=== PATIENT | female | born 1955 | race Caucasian/White ===

== ENCOUNTER 2018-05-24 06:58 | Day surgery (SDC) | payer OTHER ==
[2018-05-24] MEDS ORDERED: Lactated Ringers 1,000 ML IV SCH (07:30)
[2018-05-24] MEDS ORDERED: fentaNYL 100 MCG/2 ML SDV ONE (08:22)
[2018-05-24] MEDS ORDERED: Propofol 200 MG/20 ML SDV ONE (08:22)
[2018-05-24] MEDS ORDERED: Midazolam 1 MG/ML 2 ML SDV ONE (08:22)
--- NOTE | 2018-05-24 11:01 | OR ---
DATE OF PROCEDURE: 05/24/2018 PREOP DIAGNOSIS: Colon cancer screening. POSTOP DIAGNOSIS: Small transverse colon polyp. PROCEDURE PERFORMED: Colonoscopy to the cecum with biopsy resection of small transverse colon polyp. SURGEON: Efrem Valdez MD ANESTHESIA: IV anesthesia with monitored anesthesia care. INDICATION: This 62-year-old white female is referred for a colonoscopy for colon cancer screening. Her last colonoscopic exam was done 10 years ago. I counseled her for the procedure, including risks and alternatives, and she gave her informed consent to proceed. DESCRIPTION OF PROCEDURE: The patient was placed in the left lateral decubitus position. IV anesthesia was administered by the Anesthesia Service. Time-out was held. A rectal exam was performed, which was unremarkable. The flexible video Olympus colonoscope was introduced through her anus, up her rectum and out her colon all the way to the cecum. En route in the transverse colon, we saw a small polyp, which was removed with a few bites of biopsy forceps. Once the cecum was reached, the scope was slowly withdrawn, examining the mucosa throughout. No additional mucosal abnormalities were noted. The scope was retroflexed in the rectum with the distal rectum appearing unremarkable. The scope was straightened and removed. She tolerated the procedure well. Efrem Valdez MD /[id number]
== END 2018-05-24 10:48 | disposition home or self-care (01) ==
LOC: JP.SDS 06:58
PROVIDERS: ATTEND Surgery
DX: Z12.11 Encounter for screening for malignant neoplasm of colon (principal); K63.5 Polyp of colon; I10 Essential (primary) hypertension; E11.9 Type 2 diabetes mellitus without complications; E66.9 Obesity, unspecified; K21.9 Gastro-esophageal reflux disease without esophagitis
CPT/HCPCS: 88305; J2250; J2704; J3010

== ENCOUNTER 2023-12-23 18:09 | Emergency (ER) | payer MEDICARE, BC ==
[2023-12-23] MEDS: Cyclobenzaprine 10 MG Tab PO ONE (22:06)
[2023-12-23] MEDS: Ketorolac 30 MG/ML SDV IM ONE (22:07)
== END 2023-12-23 22:52 | disposition home or self-care (01) ==
LOC: JP.ED 18:09
DX: M54.41 Lumbago with sciatica, right side (principal); I10 Essential (primary) hypertension; K21.9 Gastro-esophageal reflux disease without esophagitis; E11.9 Type 2 diabetes mellitus without complications; E03.9 Hypothyroidism, unspecified; Z79.82 Long term (current) use of aspirin; Z79.84 Long term (current) use of oral hypoglycemic drugs; Z79.899 Other long term (current) drug therapy; Z86.19 Personal history of other infectious and parasitic diseases
CPT/HCPCS: 96372; 99283; A9270; J1885